=== PATIENT | female | born 1980 | race American Indian/Alaskan Native ===

== ENCOUNTER 2019-07-25 19:37 | Emergency (ER) | payer SELFPAY ==
--- NOTE | 2019-07-25 20:15 | Emergency Department Report ---
Blank Doc - Documentation Documentation: 38-year-old female that presents with abdominal pain with n/v. This initial assessment/diagnostic orders/clinical plan/treatment(s) is/are subject to change based on patient's health status, clinical progression and re- assessment by fellow clinical providers in the ED. Further treatment and workup at subsequent clinical providers discretion. Patient/guardians urged not to elope from the ED as their condition may be serious if not clinically assessed and managed. Initial orders include: 1- Patient sent to [facility] for further evaluation and treatment 2- labs 3- UA
[2019-07-25 20:56] LABS: Basophils % (Auto) 0.7 % (0.0-1.8); Eosinophils % (Auto) 0.5 % (0.0-4.3); Hematocrit 43.3 % (30.3-42.9); Hemoglobin 14.5 gm/dl (10.1-14.3); Lymphocytes # (Auto) 1.1 K/mm3 (1.2-5.4); Mean Corpuscular HGB Conc 33 % (30-34); Mean Corpuscular Volume 93 fl (79-97); Monocytes # (Auto) 0.3 K/mm3 (0.0-0.8); Monocytes % (Auto) 4.7 % (0.0-7.3); Platelet Count 278 K/mm3 (140-440); Red Blood Count 4.68 M/mm3 (3.65-5.03); Red Cell Distribution Width 13.8 % (13.2-15.2)
[2019-07-25 21:09] LABS: Alanine Aminotransferase 15 units/L (7-56); Albumin 4.1 g/dL (3.9-5); BUN/Creatinine Ratio 15; Blood Urea Nitrogen 9 mg/dL (7-17); Calcium 8.9 mg/dL (8.4-10.2); Hemolysis Index 23
[2019-07-25 21:49] VITALS: BP 121/72
--- NOTE | 2019-07-25 22:29 | Emergency Department Report ---
ED N/V/D HPI - General Chief complaint: Abdominal Pain Stated complaint: STOMACH VIRUS Time Seen by Provider: 07/25/19 22:04 Source: patient Mode of arrival: Ambulatory Limitations: No Limitations - History of Present Illness Initial comments: pt Is a 38-year-old female presents to the emergency room with complaints of a stomach virus. Patient states her symptoms started this morning approximately 8 AM. Patient states her symptoms are abdominal pain, nausea vomiting and diarrhea. Patient states her abdominal pain is a 6 out of 10. Patient states her pain is better with rest and worse with movement, vomiting. Patient states she is able to tolerate liquids. Patient states she has not tried any solid foods because she vomited. Patient denies fever and chills. Patient denies headache. Patient denies dizziness. Patient denies syncope. Patient denies any other complaints. Patient denies past medical history except for gallbladder disease and status post cholecystectomy. MD complaint: nausea, vomiting, diarrhea, abdominal pain -: Sudden Description of Vomiting: watery Description of Diarrhea: water Associated Abdominal Pain: Yes Location: diffuse Radiation: none Severity: moderate, severe Pain Scale: 6 Quality: cramping Consistency: intermittent Improves with: rest Worsens with: vomiting, movement Context: sick contacts Associated Symptoms: nausea/vomiting. denies: myalgias, chest pain, cough, diaphoresis, fever/chills, headaches, loss of appetite, malaise, rash, dysuria, shortness of breath, syncope - Related Data Previous Rx's Medication Instructions Recorded Last Taken Type Ondansetron [Zofran Odt] 4 mg PO Q6HR PRN #20 tab.rapdis 07/25/19 Unknown Rx Allergies Allergy/AdvReac Type Severity Reaction Status Date / Time No Known Allergies Allergy Unverified 07/25/19 20:16 ED Review of Systems ROS: Stated complaint: STOMACH VIRUS Other details as noted in HPI Constitutional: denies: chills, fever Eyes: denies: eye pain, eye discharge, vision change ENT: denies: ear pain, throat pain Respiratory: denies: cough, shortness of breath, wheezing Cardiovascular: denies: chest pain, palpitations Endocrine: no symptoms reported Gastrointestinal: abdominal pain, nausea, vomiting, diarrhea Genitourinary: denies: urgency, dysuria, discharge Musculoskeletal: denies: back pain, joint swelling, arthralgia Skin: denies: rash, lesions Neurological: denies: headache, weakness, paresthesias Psychiatric: denies: anxiety, depression Hematological/Lymphatic: denies: easy bleeding, easy bruising ED Past Medical Hx - Past Medical History Previous Medical History?: No - Surgical History Past Surgical History?: Yes Hx Cholecystectomy: Yes - Family History Family history: no significant - Social History Smoking Status: Current Every Day Smoker Substance Use Type: Marijuana - Medications Home Medications: Home Medications Medication Instructions Recorded Confirmed Last Taken Type Ondansetron [Zofran Odt] 4 mg PO Q6HR PRN #20 tab.rapdis 07/25/19 Unknown Rx ED Physical Exam - General Limitations: No Limitations General appearance: alert, in no apparent distress - Head Head exam: Present: atraumatic, normocephalic - Eye Eye exam: Present: normal appearance - ENT ENT exam: Present: mucous membranes moist - Neck Neck exam: Present: normal inspection - Respiratory Respiratory exam: Present: normal lung sounds bilaterally. Absent: respiratory distress, wheezes, rales - Cardiovascular Cardiovascular Exam: Present: regular rate, normal rhythm. Absent: systolic murmur, diastolic murmur, rubs, gallop - GI/Abdominal GI/Abdominal exam: Present: soft, normal bowel sounds. Absent: distended, tenderness, guarding - Extremities Exam Extremities exam: Present: normal inspection - Back Exam Back exam: Present: normal inspection - Neurological Exam Neurological exam: Present: alert, oriented X3 - Psychiatric Psychiatric exam: Present: normal affect, normal mood - Skin Skin exam: Present: warm, dry, intact, normal color. Absent: rash ED Course Vital Signs 07/25/19 07/25/19 19:40 21:45 Temperature 97.8 F 98.4 F Pulse Rate 66 80 Respiratory 20 16 Rate Blood Pressure 141/79 121/72 [Right] O2 Sat by Pulse 98 Oximetry - Reevaluation(s) Reevaluation #1: Patient is stable for discharge. I discussed all results with patient. I discussed plan of care with patient. Patient agrees with plan of care. Patient will be discharged home. Patient given discharge instructions. Patient voiced understanding of discharge instructions. 07/25/19 22:36 ED Medical Decision Making - Lab Data Result diagrams: 07/25/19 20:30 07/25/19 20:30 - Medical Decision Making Patient is a 38-year-old female that presents emergency room with complaints of abdominal pain, nausea, vomiting, diarrhea. Patient's clinical findings are consistent with gastroenteritis. Patient's labs are unremarkable. Patient given discharge instructions. Patient will be discharged home with a prescription for Zofran. Patient also instructed to eat a Faustino diet. 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 - Differential Diagnosis abdominal pain, gastroenteritis, nausea, vomiting, diarrhea Critical care attestation.: If time is entered above; I have spent that time in minutes in the direct care of this critically ill patient, excluding procedure time. ED Disposition Clinical Impression: Gastroenteritis Nausea & vomiting Qualifiers: Vomiting type: unspecified Vomiting Intractability: non-intractable Qualified Code(s): R11.2 - Nausea with vomiting, unspecified Diarrhea Qualifiers: Diarrhea type: unspecified type Qualified Code(s): R19.7 - Diarrhea, unspe cified Abdominal pain Qualifiers: Abdominal location: generalized Qualified Code(s): R10.84 - Generalized abdominal pain Disposition: TO HOME OR SELFCARE Is pt being admited?: No Does the pt Need Aspirin: No Condition: Stable Instructions: Abdominal Pain (ED), Traveler's Diarrhea (ED), Diet for Ulcers and Gastritis (ED), Acute Nausea and Vomiting (ED), Gastroenteritis (ED) Additional Instructions: Patient to follow up with primary care in 2-3 days. Patient to return to ER if condition worsens, changes or new symptoms arise. Patient to take Tylenol or ibuprofen when necessary for pain. Patient to rest. Patient to increase water. Patient to eat a Brat diet. Prescriptions: Ondansetron [Zofran Odt] 4 mg PO Q6HR PRN #20 tab.rapdis PRN Reason: Nausea And Vomiting Referrals: JIMMY STACK MD [Staff Physician] - 2-3 Days Time of Disposition: 22:41
[2019-07-25 22:45] LABS: Bilirubin,Urine NEG (Negative); Blood,Urine NEG (Negative); Color,Urine Yellow (Yellow); Mucus,Urine 3+ /HPF; Protein,Urine <15 mg/dL mg/dL (Negative); Urobilinogen,Urine < 2.0 mg/dL (<2.0)
== END 2019-07-25 23:00 | disposition home or self-care (01) ==
LOC: ED 19:37
DX: K52.9 Noninfective gastroenteritis and colitis, unspecified (principal); F17.200 Nicotine dependence, unspecified, uncomplicated; F12.10 Cannabis abuse, uncomplicated; Z79.899 Other long term (current) drug therapy; Z90.49 Acquired absence of other specified parts of digestive tract
CPT/HCPCS: 36415; 80053; 81001; 83690; 84703; 85025